=== PATIENT | male | born 1980 | race Caucasian/White ===

== ENCOUNTER 2021-08-25 15:41 | Emergency (ER) | payer MEDICARE, MEDICAID ==
--- NOTE | 2021-08-25 15:52 | EDM.PDOC ---
ED HPI GENERAL MEDICAL PROBLEM - General Chief Complaint: Lower Extremity Injury/Pain Stated Complaint: POSSIBLE BROKEN FOOT Time Seen by Provider: 08/25/21 15:51 - History of Present Illness INITIAL COMMENTS - FREE TEXT/NARRATIVE: Neno, 41-year-old male, presents with pain to the dorsum aspect of the right foot. He also has tenderness to the second toe with some deformity at its base. He is uncertain as to what he did but states he likely stubbed it last night/yesterday to see predominantly is barefoot. He denies any other contributing factors. He denies any contributing history other than stating at one time he may have broken bone(s) and is unsure of their healing process as he is not one who prefers seeking medical evaluation. He is not vaccinated. He declines any detailed history discussion. Onset: Unknown/Unsure Onset Date: 08/24/21 Duration: Hour(s):, Constant, Getting Worse Location: Reports: Lower Extremity, Right Right Feet Pain Score (Numeric/FACES): 8 - Related Data Allergies Allergy/AdvReac Type Severity Reaction Status Date / Time No Known Drug Allergies Allergy Cannot Verified 08/25/21 15:49 Remember Home Meds: Home Meds . [No Known Home Meds] 08/25/21 [History] Past Medical History - Past Health History Medical/Surgical History: Denies Medical/Surgical History Social & Family History - Family History Family Medical History: No Pertinent Family History Review of Systems - Review of Systems Review Of Systems: Comprehensive ROS is negative, except as noted in HPI. ED EXAM, GENERAL - Physical Exam Exam: See Below Free Text/Narrative:: Alert, oriented, in no specific distress. HEENT is negative discharge or deformity. There is no cyanosis nor pallor. He speaks in full sentences with no difficulty. He exhibits no shortness of breath. Focused examination to the right lower extremity shows a slightly deformed swollen's right second digit with tenderness. There is tenderness to the dorsum of the foot. Pulses are present there is no erythema with mild darkening of the skin somewhat unclean. X-ray obtained with no difficulty showing a displaced proximal second phalange. Course - Vital Signs Last Recorded V/S: Last Vital Signs Temp 98.1 F 08/25/21 15:44 Pulse 94 08/25/21 15:44 Resp 16 08/25/21 15:44 BP 128/73 08/25/21 15:44 Pulse Ox 98 08/25/21 15:44 - Radiology Interpretation Free Text/Narrative:: Displaced second proximal phalange of the right foot. Recommended dedicated toe x-ray As able to discern acute versus chronic appearance - Re-Assessments/Exams Free Text/Narrative Re-Assessment/Exam: 08/25/21 17:08 Specific toe film obtained showing what appears to be acute injury. He declines postop shoe or boot stating he will be able to take care of this himself. We strongly encourage follow-up with podiatry services. Departure - Departure Time of Disposition: 17:07 Disposition: Home, Self-Care 01 Condition: Good Clinical Impression: Foot pain, right Fracture of second toe, right, closed Qualifiers: Encounter type: initial encounter Qualified Code(s): S92.501A - Displaced unspecified fracture of right lesser toe(s), initial encounter for closed fracture - Discharge Information *PRESCRIPTION DRUG MONITORING PROGRAM REVIEWED*: Not Applicable *COPY OF PRESCRIPTION DRUG MONITORING REPORT IN PATIENT [facility]: Not Applicable Instructions: Toe Fracture, [id number] Referrals: Hayley Petit MD [Primary Care Provider] - Forms: ED Department Discharge Additional Instructions: Limit your activity. Follow-up with clinic of your choice and or podiatry specialty for reassessment and treatment of the second toe. Limit weightbearing to the foot is much as possible. Sepsis Event Note (ED) - Evaluation Sepsis Screening Result: No Definite Risk - Focused Exam Vital Signs: Vital Signs Temp Pulse Resp BP Pulse Ox 08/25/21 15:44 98.1 F 94 16 128/73 98 - Problem List & Annotations (1) Foot pain, right SNOMED Code(s): 03739025 Code(s): M79.671 - PAIN IN RIGHT FOOT Status: Acute Priority: High (2) Fracture of second toe, right, closed SNOMED Code(s): 08054102, 381573899 Code(s): S92.501A - DISPLACED UNSP FRACTURE OF RIGHT LESSER TOE(S), INIT Status: Acute Priority: High Qualifiers: Encounter type: initial encounter Qualified Code(s): S92.501A - Displaced unspecified fracture of right lesser toe(s), initial encounter for closed fracture - Problem List Review Problem List Initiated/Reviewed/Updated: Yes - Assessment/Plan Plan: Limit your activity. Follow-up with clinic of your choice and or podiatry specialty for reassessment and treatment of the second toe. Limit weightbearing to the foot is much as possible.
--- NOTE | 2021-08-25 16:31 | CR ---
[id number] RAD/RAD Foot Right 2V Exam: RAD Foot Right 2V Indication:2ND TOE PAIN WITH DEFORMITY, 2ND METATARSAL . STUBBED Comparison: No prior imaging for comparison. Discussion/Impression: Abnormal morphology of the second digit proximal phalanx of uncertain etiology or clinical significance. If there is history of trauma, an acute fracture is possible. Consider dedicated radiograph of the second ray to better evaluate this finding as clinically warranted. Bipartite tibial hallux sesamoid, normal variant. No other significant abnormality. Bryce Guillermo MD 08/25/21 0312 Thank you for allowing us to participate in the care of your patient.
--- NOTE | 2021-08-25 17:02 | CR ---
[id number] RAD/RAD Toes Right Exam: RAD Toes Right Indication:2ND TOE PAIN WITH DEFORMITY. Comparison: No prior imaging for comparison. Discussion/Impression: A single lateral view of the foot was obtained. There is an obliquely orientated acute appearing fracture in the distal phalanx of either the second or third digit. Is not the digit held in place by the pointer. No other evidence of acute injury within limitations of overlapping osseous structures on this single view. Bryce Guillermo MD 08/25/21 [id number] Thank you for allowing us to participate in the care of your patient.
== END 2021-08-25 17:20 | disposition home or self-care (01) ==
LOC: KA.ED 15:41
DX: S92.501A Displaced unspecified fracture of right lesser toe(s), initial encounter for closed fracture (principal); X58.XXXA Exposure to other specified factors, initial encounter
CPT/HCPCS: 73620-RT; 73660-T6; 99283; 99283-25